=== PATIENT | female | born 1985 | race Caucasian/White ===

== ENCOUNTER 2016-11-15 13:21 | Emergency (ER) | payer MEDICAID ==
[2016-11-15 13:37] VITALS: BP 103/63; PULSE 74; TEMP 98.1; O2SAT 100
[2016-11-15 14:08] LABS: RBC URINE 9 /hpf (0-3); URINE BACTERIA RARE (<OCC); URINE BILIRUBIN NEGATIVE (NEGATIVE); URINE COLOR Yellow (YELLOW); URINE GLUCOSE (UA) NORMAL (Normal); URINE KETONE TRACE mg/dL (NEGATIVE); URINE LEUKOCYTE ESTERASE 2+ Leu/uL (Negative); URINE PROTEIN NEGATIVE (NEGATIVE); WBC URINE 31 /hpf (0-5)
[2016-11-15 14:12] LABS: URINE BLOOD TRACE (NEGATIVE)
--- NOTE | 2016-11-15 14:40 | C.PDOC ---
History Of Present Illness 31 year old patient, with a past medical history of gastritis and herpes, presents to the ED complaining of vaginal itchiness and irritation for the past 3 days. Patient states the symptoms became worse today. Patient is s/p two antibiotic courses for a "sinus infection." Patient notes she typically gets a yeast infection after taking antibiotics. Patient denies dysuria, hematuria, or abdominal pain. Patient states she is not concerned for an STD. Time Seen by Provider: 11/15/16 13:39 Chief Complaint (Nursing): Female Genitourinary History Per: Patient History/Exam Limitations: no limitations Onset/Duration Of Symptoms: Days (3) Current Symptoms Are (Timing): Still Present Severity: Mild Pain Scale Rating Of: 3 Quality Of Discomfort: Other (irritation, itchiness) Associated Symptoms: denies: Urinary Symptoms Alleviating Factors: None Recent travel outside of the [place]: No Abnormal Vaginal Bleeding: No Past Medical History Reviewed: Historical Data, Nursing Documentation, Vital Signs Vital Signs: Last Vital Signs Temp 98.1 F 11/15/16 14:51 Pulse 74 11/15/16 14:51 Resp 18 11/15/16 14:51 BP 103/63 11/15/16 14:51 Pulse Ox 100 11/15/16 14:51 - Medical History PMH: Gastritis, Sexually Transmitted Disease (Herpes) Surgical History: Family History: States: Unknown Family Hx - Social History Hx Tobacco Use: Yes Hx Alcohol Use: Yes (social) Hx Substance Use: No - Immunization History Hx Tetanus Toxoid Vaccination: No Hx Influenza Vaccination: No Hx Pneumococcal Vaccination: No Review Of Systems Except As Marked, All Systems Reviewed And Found Negative. Gastrointestinal: Negative for: Abdominal Pain Genitourinary: Positive for: Vaginal Discharge (and irritation). Negative for: Dysuria, Hematuria Physical Exam - Physical Exam Appears: Non-toxic, No Acute Distress Skin: Warm, Dry Chest: Symmetrical Cardiovascular: Rhythm Regular Respiratory: Normal Breath Sounds, No Rales, No Rhonchi, No Wheezing Gastrointestinal/Abdominal: Soft, No Tenderness Pelvic: Vaginal Discharge (white, cottage cheese like), No Adnexal Tenderness, Other ((-)external lesions (+) labia is erythematous and irritated (+)vaginal mucosa is erythematous and irritated (-)CMT (-)blood) ED Course And Treatment O2 Sat by Pulse Oximetry: 100 (RA) Pulse Ox Interpretation: Normal Progress Note: Diflucan given and urinalysis reviewed. Patient is given Diflucan prescription to take home. Patient is discharged and instructed to follow up with decorating supervisor if symptoms persist or worsen. Disposition Counseled Patient/Family Regarding: Diagnosis, Need For Followup, Rx Given - Disposition Referrals: Gary Mcpherson MD [Staff Provider] - David Gonzales MD [Staff Provider] - Disposition: HOME/ ROUTINE Disposition Time: 14:45 Additional Instructions: FOLLOW UP WITH YOUR CRIMINOLOGY PROFESSOR WITHIN 1 WEEK USE MEDICATION DIRECTED RETURN TO ER IF SYMPTOMS WORSEN Prescriptions: Fluconazole [Diflucan] 150 mg PO DAILY #2 tab Instructions: Vulvovaginal Candidiasis (ED) Print Language: CROATIAN - POA Present On Arrival: None - Clinical Impression Clinical Impression: Vaginal candidiasis - Scribe Statement The provider has reviewed the documentation as recorded by the Scribe Natalie Austin Provider Attestation: All medical record entries made by the Scribe were at my direction and personally dictated by me. I have reviewed the chart and agree that the record accurately reflects my personal performance of the history, physical exam, medical decision making, and the department course for this patient. I have also personally directed, reviewed, and agree with the discharge instructions and disposition.
[2016-11-15 14:52] VITALS: RESP 18
== END 2016-11-15 14:51 | disposition home or self-care (01) ==
LOC: C.ER 13:21
DX: B37.3 Candidiasis of vulva and vagina (principal)

== ENCOUNTER 2016-12-02 21:03 | Emergency (ER) | payer MEDICAID ==
[2016-12-02 21:13] VITALS: O2SAT 98
--- NOTE | 2016-12-02 21:38 | C.PDOC ---
History Of Present Illness 31 year old female presents to the ED with complaints of suprapubic discomfort and vaginal itch for the past few days. Patient states the symptoms are similar to her previous yeast infection which she developed after she was on antibiotics a month ago. She was on Diflucan then got her period and is unsure if the yeast infection went away. Denies fever, chills, nausea, vomiting, urinary symptoms, or any other complaints at this time. Time Seen by Provider: 12/02/16 21:35 Chief Complaint (Nursing): Abdominal Pain History Per: Patient History/Exam Limitations: no limitations Onset/Duration Of Symptoms: Days Current Symptoms Are (Timing): Still Present Severity: Moderate Pain Scale Rating Of: 6 Location Of Pain/Discomfort: Suprapubic Radiation Of Pain To:: None Associated Symptoms: denies: Fever, Chills, Nausea, Vomiting, Urinary Symptoms Abnormal Vaginal Bleeding: No Past Medical History Reviewed: Historical Data, Nursing Documentation, Vital Signs Vital Signs: Last Vital Signs Temp 97.9 F 12/02/16 21:09 Pulse 91 H 12/02/16 21:09 Resp 20 12/02/16 21:09 BP 124/85 12/02/16 21:09 Pulse Ox 98 12/02/16 21:51 - Medical History PMH: Gastritis, Sexually Transmitted Disease (Herpes) Surgical History: Family History: States: Unknown Family Hx - Social History Hx Tobacco Use: Yes Hx Alcohol Use: Yes (social) Hx Substance Use: No - Immunization History Hx Tetanus Toxoid Vaccination: No Hx Influenza Vaccination: No Hx Pneumococcal Vaccination: No Review Of Systems Constitutional: Negative for: Fever, Chills Cardiovascular: Negative for: Chest Pain, Palpitations Respiratory: Negative for: Cough, Shortness of Breath, Wheezing Gastrointestinal: Positive for: Abdominal Pain (+Suprapubic discomfort). Negative for: Nausea, Vomiting Genitourinary: Positive for: Other (+vaginal itch). Negative for: Dysuria, Frequency Musculoskeletal: Negative for: Back Pain Skin: Negative for: Rash, Lesions, Jaundice Psych: Negative for: Anxiety Physical Exam - Physical Exam Appears: Non-toxic, No Acute Distress Skin: Warm, Dry Oral Mucosa: Moist Chest: Symmetrical Cardiovascular: Rhythm Regular Respiratory: No Rales, No Rhonchi, No Wheezing Gastrointestinal/Abdominal: Soft, Tenderness (+Mild suprapubic tenderness), No Distention, No Guarding, No Rebound Pelvic: No Vaginal Bleeding, Vaginal Discharge, No Cervical Motion Tenderness, No Cervix Open, No Mass, Other (0.2 cm bluidh discoloration on the sup aspect of cervix) Extremity: Normal ROM Neurological/Psych: Oriented x3, Normal Speech, Normal Cognition ED Course And Treatment O2 Sat by Pulse Oximetry: 98 (Room air) Pulse Ox Interpretation: Normal Progress Note: Urinalysis ordered and reviewed. Reevaluation Time: 22:52 Reassessment Condition: Improved Medical Decision Making Medical Decision Making: Upon provider reevaluation patient is feeling better, is medically stable, and requires no further treatment in the ED at this time. Patient will be discharged home with Rx for diflucan. Counseling was provided and all questions were answered regarding diagnosis and need for follow up with dr gonzales, re: the lession on the cervix. There is agreement to discharge plan. Return if symptoms persist or worsen. Disposition Counseled Patient/Family Regarding: Studies Performed, Diagnosis, Need For Followup, Rx Given - Disposition Referrals: David Gonzales MD [Staff Provider] - Disposition: HOME/ ROUTINE Disposition Time: 21:38 Condition: FAIR Additional Instructions: Please return if symptoms recur Prescriptions: Fluconazole [Diflucan] 200 mg PO DAILY #7 tab Instructions: Vulvovaginal Candidiasis (ED) - Clinical Impression Clinical Impression: Vaginal candidiasis - Scribe Statement The provider has reviewed the documentation as recorded by the Scribe Irma Bray. Provider Attestation: All medical record entries made by the Scribe were at my direction and personally dictated by me. I have reviewed the chart and agree that the record accurately reflects my personal performance of the history, physical exam, medical decision making, and the department course for this patient. I have also personally directed, reviewed, and agree with the discharge instructions and disposition.
[2016-12-02 22:10] LABS: RBC URINE 6 /hpf (0-3); URINE BILIRUBIN NEGATIVE (NEGATIVE); URINE BLOOD 1+ (NEGATIVE); URINE COLOR Yellow (YELLOW); URINE GLUCOSE (UA) NORMAL (Normal); URINE KETONE NEGATIVE (NEGATIVE); URINE LEUKOCYTE ESTERASE NEG Leu/uL (Negative); URINE PROTEIN NEGATIVE (NEGATIVE); URINE UROBILINOGEN NORMAL mg/dL (0.2-1.0); WBC URINE 1 /hpf (0-5)
[2016-12-02 23:03] VITALS: BP 118/64; PULSE 84; RESP 16; TEMP 98
== END 2016-12-02 23:04 | disposition home or self-care (01) ==
LOC: C.ER 21:03
DX: B37.3 Candidiasis of vulva and vagina (principal)

== ENCOUNTER 2018-01-05 20:07 | Emergency (ER) | payer MEDICAID ==
[2018-01-05 20:29] VITALS: RESP 18
[2018-01-05 20:52] LABS: SQUAMOUS EPITHIAL 1 /hpf (0-5); URINE BILIRUBIN NEGATIVE (NEGATIVE); URINE BLOOD 1+ (NEGATIVE); URINE CLARITY Clear (Clear); URINE COLOR Yellow (YELLOW); URINE GLUCOSE (UA) NORMAL (Normal); URINE LEUKOCYTE ESTERASE NEG Leu/uL (Negative); URINE PROTEIN NEGATIVE (NEGATIVE)
--- NOTE | 2018-01-05 22:35 | C.PDOC ---
Time Seen by Provider: 01/05/18 22:08 Chief Complaint (Nursing): Female Genitourinary History Per: Patient Onset/Duration Of Symptoms: Days (1) Current Symptoms Are (Timing): Still Present Severity: Moderate Quality Of Discomfort: Cramping Associated Symptoms: Urinary Symptoms Alleviating Factors: None Additional History Per: Prior Records Abnormal Vaginal Bleeding: No Last Menstral Period: 16 weeks Past Medical History Reviewed: Historical Data, Nursing Documentation, Vital Signs Vital Signs: Last Vital Signs Temp 98.3 F 01/05/18 20:26 Pulse 86 01/05/18 20:26 Resp 18 01/05/18 20:26 BP 126/70 01/05/18 20:26 Pulse Ox 100 01/05/18 20:26 - Medical History PMH: Gastritis, Sexually Transmitted Disease (Herpes) Surgical History: Family History: States: Unknown Family Hx - Social History Hx Tobacco Use: Yes Hx Alcohol Use: Yes (social) Hx Substance Use: No - Immunization History Hx Tetanus Toxoid Vaccination: No Hx Influenza Vaccination: No Hx Pneumococcal Vaccination: No Review Of Systems Except As Marked, All Systems Reviewed And Found Negative. Constitutional: Negative for: Fever, Chills, Weakness Cardiovascular: Negative for: Chest Pain Respiratory: Negative for: Shortness of Breath Gastrointestinal: Negative for: Vomiting Genitourinary: Positive for: Frequency. Negative for: Dysuria, Hematuria, Vaginal Discharge, Vaginal Bleeding Musculoskeletal: Negative for: Neck Pain, Back Pain Skin: Negative for: Rash Neurological: Negative for: Weakness, Numbness Physical Exam - Physical Exam Appears: Non-toxic, No Acute Distress Skin: Normal Color, Warm, Dry, No Rash Head: Atraumatic, Normacephalic Eye(s): bilateral: Normal Inspection, PERRL, EOMI Neck: Normal ROM, Supple Cardiovascular: Rhythm Regular Respiratory: Normal Breath Sounds, No Accessory Muscle Use Gastrointestinal/Abdominal: Soft, No Tenderness, Other (Gravid) Back: No CVA Tenderness Extremity: Normal ROM, No Pedal Edema Neurological/Psych: Oriented x3, Normal Motor, Normal Sensation ED Course And Treatment O2 Sat by Pulse Oximetry: 100 Pulse Ox Interpretation: Normal Disposition Counseled Patient/Family Regarding: Studies Performed, Diagnosis, Need For Followup, Rx Given - Disposition Disposition: HOME/ ROUTINE Disposition Time: 22:35 Condition: STABLE Additional Instructions: Drink plenty of fluids. Follow up with your [employer] Screen Operator doctor. Return to the ER if you develop fever, chills, vaginal bleeding or discharge, worsening of symptoms or if you have any other concerns. Prescriptions: Nitrofurantoin Macrocrystals [Macrobid] 1 cap PO BID #14 cap - Clinical Impression Clinical Impression: Symptoms of urinary tract infection
[2018-01-05 22:45] VITALS: BP 106/72; PULSE 82; TEMP 98.7; O2SAT 98
== END 2018-01-05 22:45 | disposition home or self-care (01) ==
LOC: C.ER 20:07 → SUPCPDRO 20:07 → C.ER 22:45
DX: O23.42 Unspecified infection of urinary tract in pregnancy, second trimester (principal); Z3A.16 16 weeks gestation of pregnancy

== ENCOUNTER 2018-07-17 14:08 | Emergency (ER) | payer MEDICAID ==
[2018-07-17 14:42] VITALS: BP 121/76; RESP 18; TEMP 98.1; BMI 27.4
--- NOTE | 2018-07-17 15:29 | C.PDOC ---
History Of Present Illness 33 yo female c/o to the ER for wound check. Pt had a Csection on 06/09/18 and notes that she has had intermittent redness to the area. Pt has seen her OBGYN 3 times since the csection who told her that the incision is healing well. Yesterday she put peroxide on the wound which caused burning. Today she noticed redness, prompting ER visit. She also reports that she started wearing a girdle recently. Denies fever, discharge, abdominal pain, n/v, or opening of the wound. Time Seen by Provider: 07/17/18 14:59 Chief Complaint (Nursing): Wound Check History Per: Patient History/Exam Limitations: no limitations Onset/Duration Of Symptoms: Hrs Past Medical History Vital Signs: Last Vital Signs Temp 98.1 F 07/17/18 14:40 Pulse 79 07/17/18 14:40 Resp 18 07/17/18 14:40 BP 121/76 07/17/18 14:40 Pulse Ox 99 07/17/18 14:40 - Medical History PMH: Gastritis, Sexually Transmitted Disease (Herpes) Surgical History: Family History: States: Unknown Family Hx - Social History Hx Tobacco Use: Yes Hx Alcohol Use: Yes (social) Hx Substance Use: No - Immunization History Hx Tetanus Toxoid Vaccination: No Hx Influenza Vaccination: No Hx Pneumococcal Vaccination: No Review Of Systems Except As Marked, All Systems Reviewed And Found Negative. Physical Exam - Physical Exam Appears: Well, Non-toxic, No Acute Distress Skin: Warm, Dry, Other ((+) well healing c section incision with 3 areas (0.5 cm) of erythema , no open wound, no discharge) Head: Atraumatic, Normacephalic Eye(s): bilateral: Normal Inspection, EOMI Nose: Normal Oral Mucosa: Moist Neck: Normal, Supple Chest: Symmetrical Respiratory: No Accessory Muscle Use Gastrointestinal/Abdominal: Normal Exam, Soft, No Tenderness Back: Normal Inspection Extremity: Normal ROM Neurological/Psych: Oriented x3, Normal Speech ED Course And Treatment O2 Sat by Pulse Oximetry: 99 Progress Note: Pt was instructed wound care including keeping the wound clean and dry and free of irritants. Erythema appears from irritation and does not seem infectious. Pt was told she can apply antibiotic ointment on it. Discussed signs of concern and if should the symptoms worsen, instructed to fill po abx and follow up with OB that day. Discussed return precautions. Disposition - Disposition Disposition: HOME/ ROUTINE Disposition Time: 15:29 Condition: STABLE Additional Instructions: Keep area clean and dry. Avoid any fabrics that may irritate the area. You may apply antibiotic ointment to the area. If the area becomes increasingly red or has discharge, fill the antibiotic to take by mouth. Follow up with the OB in 2 days. Prescriptions: Bacitracin OINT 1 applic TP BID #1 tube Cephalexin [cephalexin] 500 mg PO TID #21 cap Instructions: Skin Rash (DC) Forms: Inherited Health ([place]) - Clinical Impression Clinical Impression: Visit for wound check
[2018-07-17 15:46] VITALS: PULSE 80
[2018-07-17 20:26] VITALS: O2SAT 99
== END 2018-07-17 15:47 | disposition home or self-care (01) ==
LOC: C.ER 14:08
DX: Z48.01 Encounter for change or removal of surgical wound dressing (principal)

== ENCOUNTER 2019-01-02 21:41 | Emergency (ER) | payer MEDICAID | END 2019-01-02 23:25 | disposition home or self-care (01) | LOC: C.ER 21:41 ==